=== PATIENT | female | born 1960 | race Caucasian/White ===

== ENCOUNTER → 2017-07-26 | Outpatient (CLI) | payer OTHER ==
[~2017-07-26] MED LIST: FLEXERIL10 MG PO; MOTRIN800 MG PO; NKHM
== END | disposition home or self-care (01) ==
LOC: RAD 10:46
DX: M41.84 Other forms of scoliosis, thoracic region (principal); M43.8X4 Other specified deforming dorsopathies, thoracic region

== ENCOUNTER → 2023-01-11 | Outpatient (CLI) | payer OTHER | END | disposition home or self-care (01) | LOC: RAD 15:04 | PROVIDERS: ATTEND Nurse Practitioner Family | DX: R06.2 Wheezing (principal); R05.9 Cough, unspecified; M41.84 Other forms of scoliosis, thoracic region; M41.86 Other forms of scoliosis, lumbar region ==